=== PATIENT | female | born 1965 | race African-American/Black ===

== ENCOUNTER → 2018-01-10 | Outpatient (CLI) | payer OTHER ==
[~2018-01-10] MED LIST: CARISOPRODOL 3350 MG PO; IBUPROFEN 600600 M1 PO; NORCO 5-325 TA1 EACH PO; TRINATE TABLET1 TAB PO; VITAMIN D 5050000 I1 PO
== END ==
LOC: RAD 00:18
DX: Z12.31 Encounter for screening mammogram for malignant neoplasm of breast (principal)

== ENCOUNTER → 2019-01-14 | Outpatient (CLI) | payer OTHER | LOC: RAD 10:51 | DX: Z12.31 Encounter for screening mammogram for malignant neoplasm of breast (principal) ==

== ENCOUNTER → 2020-03-17 | Outpatient (CLI) | payer OTHER | LOC: RAD 01-16 11:56 | DX: Z12.31 Encounter for screening mammogram for malignant neoplasm of breast (principal) ==

== ENCOUNTER → 2021-05-06 | Outpatient (CLI) | payer OTHER | LOC: BC 12:48 | PROVIDERS: ATTEND Family Medicine | DX: Z12.31 Encounter for screening mammogram for malignant neoplasm of breast (principal) ==